=== PATIENT | male | born 1985 | race Caucasian/White ===

== ENCOUNTER 2025-01-14 14:39 | Emergency (ER) | payer MEDICAID ==
[~2025-01-14] VITALS: Ht 175.3 cm; Wt 90.0 kg
[2025-01-14 14:43] VITALS: O2SAT 99
[2025-01-14] MEDS ORDERED: LEVETIRACETAM 500MG PREMIX 100 ML IV ONE (15:00)
[2025-01-14] MEDS: LEVETIRACETAM 1000MG PREMIX 100 ML IV SCH (15:21)
[2025-01-14] MEDS ORDERED: LEVE1000 MT (16:41)
[2025-01-14 17:34] VITALS: BP 126/85; PULSE 96; RESP 20; TEMP 37.1; O2SAT 99
== END 2025-01-14 17:35 | disposition home or self-care (01) ==
LOC: ER 14:39
DX: R56.9 Unspecified convulsions (principal); E11.9 Type 2 diabetes mellitus without complications; Z88.0 Allergy status to penicillin
CPT/HCPCS: 99284; 96365; J1953